=== PATIENT | female | born 1995 | race Caucasian/White ===

== ENCOUNTER 2016-07-27 11:03 | Emergency (ER) | payer BC, MEDICARE ==
[~2016-07-27 11:03] MED LIST: COLACE 100MG C100 MG PO; FERROUS SULFAT325 M1 PO; GUMMI BEAR MUL1 EACH PO; IBUPROFEN600 MG PO; NORCO 5-325 TA1 EACH PO; PHENERGAN 25 MG25 M1 PO; VITAMIN B-625 MG PO; ZOFRAN8 MG PO
== END 2016-07-27 11:07 | disposition home or self-care (01) ==
LOC: ER1 11:03
DX: H66.91 Otitis media, unspecified, right ear (principal); Z88.0 Allergy status to penicillin
CPT/HCPCS: 99282